=== PATIENT | female | born 1975 | race Caucasian/White ===

== ENCOUNTER → 2018-11-05 | Outpatient (CLI) | payer OTHER ==
--- NOTE | 2018-11-05 10:37 | XR ---
EXAMINATION TYPE: XR chest 2V DATE OF EXAM: 11/05/2018 COMPARISON: NONE HISTORY: Presurgical study. TECHNIQUE: Frontal and lateral views of the chest are obtained. FINDINGS: There is no focal air space opacity, pleural effusion, or pneumothorax seen. The cardiac silhouette size is within normal limits. The osseous structures are intact. IMPRESSION: No acute cardiopulmonary process.
== END | disposition home or self-care (01) ==
LOC: LABPAT 09:24
PROVIDERS: ATTEND Orthopaedic Surgery Orthopaedic Surgery of the Spine
DX: Z01.818 Encounter for other preprocedural examination (principal); M48.02 Spinal stenosis, cervical region; Z01.812 Encounter for preprocedural laboratory examination
CPT/HCPCS: 71046

== ENCOUNTER 2018-11-12 10:31 | Observation (INO) | payer OTHER ==
[~2018-11-12 10:31] MED LIST: BACITRACIN 50,000 UNIT, POLYMYXIN B 500,000 UNIT in SODIUM CHLORIDE 0.9% IRRIGATIO 1,00... IRRIGATION ONE; DEXAMETHASONE SOD PHOSPHATE 10 MG/ML 1 ML VIAL IV ONE; LIDOCAINE 1% 20 ML VIAL (10MG/ML) FOR IV START INTRADERMA PRN; MIDAZOLAM 2 MG/2 ML VIAL IV PRN; ceFAZolin IN SWFI 2 GM/20 ML SYRINGE IVP ONE; fentaNYL (PF) 50 MCG/ML 2 ML AMP IV PRN
[2018-11-12] MEDS ORDERED: ONDANSETRON 4 MG/2 ML VIAL IVP ONE (11:25)
[2018-11-12] MEDS: LACTATED RINGERS 1,000 ML IV SCH (11:25)
[2018-11-12 11:39] LABS: Glucose,Whole Blood 96 mg/dL (75-99)
[2018-11-12] MEDS ORDERED: SUCCINYLCHOLINE CHLORIDE 100 MG/5 ML SYR IV ONE (13:35)
[2018-11-12] MEDS ORDERED: LIDOCAINE 1% INJ 10MG/ML (20 ML MDV) ONE (13:35)
[2018-11-12] MEDS ORDERED: KETAMINE 10 MG/ML 20 ML VIAL ONE (13:35)
[2018-11-12] MEDS ORDERED: MIDAZOLAM 2 MG/2 ML VIAL ONE (13:35)
[2018-11-12] MEDS ORDERED: fentaNYL (PF) 50 MCG/ML 2 ML AMP ONE (13:35)
[2018-11-12] MEDS ORDERED: PROPOFOL 10 MG/ML 20 ML VIAL IV ONE (13:35)
[2018-11-12] MEDS ORDERED: DEXAMETHASONE SOD PHOS (MDV) 100 MG/10 ML VIAL ONE (13:35)
[2018-11-12] MEDS ORDERED: THROMBIN (BOVINE) 5,000 UNIT VIAL TOPICAL ONE (13:39)
[2018-11-12] MEDS ORDERED: LIDOCAINE 0.5%-EPI 1:200,000 50 ML VIAL SQ ONE (13:39)
[2018-11-12] MEDS ORDERED: GELATIN SPONGE,ABSORB (LARGE) 1 EACH SPONGE TOPICAL ONE (13:39)
[2018-11-12] MEDS ORDERED: LACTATED RINGERS 1,000 ML IV ONE (14:37)
[2018-11-12] MEDS ORDERED: HYDROmorphone 1 MG/ML 1 ML SYRINGE IVP PRN (15:17)
[2018-11-12] MEDS ORDERED: ONDANSETRON 4 MG/2 ML VIAL IVP PRN (15:17)
[2018-11-12] MEDS ORDERED: HYDROmorphone 0.5 MG/0.5 ML SYRINGE IVP PRN (15:17)
[2018-11-12] MEDS ORDERED: ACETAMINOPHEN TAB 325 MG TAB PO PRN (15:17)
[2018-11-12] MEDS ORDERED: BENZOCAINE/MENTHOL LOZENG 1 EACH LOZENGE MUCOUS MEM PRN (15:17)
[2018-11-12] MEDS ORDERED: GABAPENTIN 300 MG CAP PO PRN (15:19)
[2018-11-12] MEDS ORDERED: CITALOPRAM HYDROBROMIDE 20 MG TAB PO PRN (15:19)
--- NOTE | 2018-11-12 15:25 | P.OP ---
Date of Procedure: 11/12/18 Preoperative Diagnosis: Herniated nuclear pulposus C5 6, cervical stenosis C5 6, upper extremity radiculopathy, upper extremity weakness Postoperative Diagnosis: Same Anesthesia: GETA Pathology: none sent Condition: stable Disposition: PACU Description of Procedure: BRIEF OPERATIVE NOTE Preoperative Diagnosis:Herniated nuclear pulposus C5 6, cervical stenosis C5 6, upper extremity radiculopathy, upper extremity weakness Postoperative Diagnosis: Same Procedure: Anterior cervical decompression with discectomy and fusion C5 6 Placement of interbody graftC5 6 Application of anterior cervical plateC5 6 Surgeon: [facility] Appraiser: Gelacio AU who is present throughout the entire the case persistence during positioning, dissection, exposure, visualization, and all crucial elements of the case as well as closure. Anesthesia: General anesthesia Estimated blood loss: 50 mL Complications: None apparent Components implanted: K2M [place] anterior cervical plate with Vikos interbody allograft Disposition: To recovery room in good stable condition. OPERATIVE INDICATIONS The patient has had significant issues in their neck and upper extremities. She was having severe numbness tingling in her upper extremities and was found have a large disc herniation at C5 6 well with her neck and upper extremity symptoms. The patient has been through conservative treatment. She is not having any improvement despite aggressive conservative care. We discussed various treatment options including surgery, and the patient wishes to proceed with surgery We discussed the risk, patient's alternatives and benefits of surgery including but not limited to, risk of bleeding risk of infection, risk of need for further surgery, risk of decreased, loss of motion, muscle function, malunion nonunion, hardware failure, nerve damage, paralysis, heart attack, and . OPERATIVE SUMMARY After discussing all the risks, patient alternatives and benefits at length, the patient elected to proceed with surgical intervention, signed informed consent, and presented for their procedure. The patient was seen and examined in the preoperative holding area and the surgical site was marked. The patient was given antibiotics and brought to the operating room. The patient was positioned on the operating room table in a supine position being careful to pad any bony prominences and pressure points. The patient was sedated and intubated by anesthesia in standard fashion. Once the airway and C- spine were stabilized the patient's arms were padded and tucked at her side, with her shoulders gently taped. The head was placed in a donut pad with the neck in good neutral alignment and position. We were careful to maintain the patient's cervical spine and good neutral alignment and position throughout. The patient was prepped and draped in a normal standard fashion. An appropriate timeout and keystone protocol performed. We were able to proceed with the surgery. The local wound area was infiltrated with local anesthetic. An incision was made transversely approximately 2-1/2 cm over the appropriate levels at C5 6. Dissection was taken down subcutaneously to the level of the platysma which was split in line with its fibers. Dissection was taken with a carotid approach, with the trachea and esophagus medial and the carotid sheath laterally. We dissected down to the anterior surface of the vertebral bodies of C5 6. Intraoperative x-ray was taken which showed a marker at the appropriate level at C5 6. With the appropriate level positively confirmed, we were able to proceed with discectomy at the appropriate levels of C5 6. All of the operative levels were exposed appropriately. The patient had all their twitches back, and there was no evidence of recurrent laryngeal issue. The wound was copiously irrigated and suctioned dry as had been done periodically throughout the case. At the appropriate level/levels, I established an annulotomy with an 11 blade scalpel. There is significant large disc herniation causing severe stenosis and foraminal decompression. A discectomy was performed with a combination of pituitary rongeurs, curettes, a high-speed bur, and Kerrison rongeurs. The posterior longitudinal ligament was taken down as were any posterior osteophytes. This gave good central and bilateral foraminal decompression. There is no evidence of any dural tear or leak. The endplates were prepared with a high-speed bur. With the endplates in good parallel position, I was able to size for the appropriate size interbody graft. The wound was irrigated and suctioned dry the graft was prepared and malleted into position. It had good alignment and position with the anterior surface flush with the anterior surface of the vertebral bodies of C5 6. With the grafts intact, I was able to measure and contour and appropriate sized plate. The plate was positioned at the midline over the appropriate levels of C5 6. Screw holes were established with a hand drill and drill guide. Screws were placed in good alignment and position with excellent bony purchase. They were seated under the locking device. The construct was checked and found to be stable. Intraoperative x-ray was taken which showed good alignment and position of the implants at the appropriate levels of C5 6. There was no evidence of any dural tear or leak. Good hemostasis was maintained. The wound was copiously irrigated and suctioned dry as had been done periodically throughout the case. The platysma was closed with absorbable suture. The subcutaneous tissue was closed. The subcuticular tissue was closed with absorbable suture. The wound was cleaned and dried and dressed appropriately. A soft cervical collar was placed appropriately. The patient was woken up by anesthesia, extubated, transferred back gently to their hospital bed and brought to the recovery room in good stable condition. The patient will be admitted to the hospital for appropriate postoperative care, medical management and monitoring. We will continue to follow them closely about the postoperative course.
[2018-11-12 15:54] LABS: Glucose,Whole Blood 110 mg/dL (75-99)
--- NOTE | 2018-11-12 15:57 | XR ---
Cervical spine HISTORY: Needle placement Single lateral view of the cervical spine submitted. There is a needle present within the C5-6 disc space. Exam is limited. There is spondylosis present. Overlying leads are present. IMPRESSION: Orthopedic localization.
--- NOTE | 2018-11-12 16:03 | XR ---
Cervical spine HISTORY: Anterior cervical fusion and discectomy Single lateral cervical spine submitted. Endotracheal tube is in place. Lesion is status post anterior cervical fusion and discectomy at C5 th rough what is likely C6, more inferiorly is not well seen. There is anatomic alignment. Intervertebra l spacing block. IMPRESSION: Limited orthopedic follow-up
[2018-11-12] MEDS: SODIUM CHLORIDE 0.9% 1,000 ML IV SCH (17:06)
[2018-11-12 17:17] VITALS: BMI 42.9
[2018-11-12 17:28] LABS: Glucose,Whole Blood 133 mg/dL (75-99)
[2018-11-12] MEDS: metFORMIN 500 MG TAB PO SCH (20:05)
[2018-11-12 20:37] LABS: Glucose,Whole Blood 196 mg/dL (75-99)
[2018-11-12] MEDS: ceFAZolin IN SWFI 2 GM/20 ML SYRINGE IVP SCH (21:50)
[2018-11-12] MEDS: HYDROcodone/APAP 5-325MG 1 EACH TAB PO PRN (21:50)
[2018-11-13 02:09] VITALS: PULSE 95
[2018-11-13] MEDS: LACTATED RINGERS 1,000 ML IV SCH (05:12)
[2018-11-13] MEDS: ceFAZolin IN SWFI 2 GM/20 ML SYRINGE IVP SCH (05:12)
[2018-11-13] MEDS: SODIUM CHLORIDE 0.9% 1,000 ML IV SCH (05:13)
[2018-11-13] MEDS: HYDROcodone/APAP 5-325MG 1 EACH TAB PO PRN ×2 (05:19→09:23)
[2018-11-13] MEDS ORDERED: PANTOPRAZOLE 40 MG TABLET PO SCH (07:30)
[2018-11-13 07:33] LABS: Glucose,Whole Blood 183 mg/dL (75-99)
[2018-11-13] MEDS ORDERED: LISINOPRIL 2.5 MG TAB PO SCH (09:00)
[2018-11-13] MEDS ORDERED: SENNOSIDES-DOCUSATE SODIUM 1 EACH TAB PO SCH (09:00)
[2018-11-13] MEDS ORDERED: PHENTERMINE HCL PO SCH (09:00)
[2018-11-13 09:07] VITALS: BP 142/84; RESP 16; TEMP 98.7
--- NOTE | 2018-11-13 09:29 | P.DS ---
Providers Date of admission: 11/13/18 00:06 Attending physician: Garret Levine Primary care physician: [facility] Hospital Course: The patient presented on the day of admission as per their operative note. She had a disc herniation at C5 6 with severe stenosis and upper extremity radiculopathy and underwent anterior cervical discectomy and fusion as per her operative note. She feels that she is doing well. She feels her symptoms at her upper extremities improved already with her surgery. Physical Exam The incision site is clean dry and intact. There is no erythema no drainage. There is no purulence no evidence of infection. Her neck is soft and supple without any swelling. Abdomen soft and nontender. Chest has good excursion with deep inspiration and expiration. The patient has active and passive range of motion intact at the upper and lower extremities. There is no acute change in neurologic status. Hospital Course Postoperative day #1 status post anterior cervical decompression with discectomy and fusion at C5 6 for her large disc herniation with severe stenosis and upper extremity radiculopathy. The patient has been making good progress postoperatively. They have completed the prophylactic antibiotics without any signs or symptoms of infection. The patient has been able to advance their diet, and is tolerating diet adequately. The pain was initially controlled with IV medications and is now controlled appropriately with oral medications. The patient has been able to increase their mobilization. The patient has progressed appropriately. I think they are in good stable condition for discharge today. They will be sent home with appropriate prescriptions. I answered their questions to the best of my ability in a language that they can understand and they are agreeable with the plan. They will follow up as directed in approximately 2 weeks or sooner if she is having any problems. Patient Condition at Discharge: Good Plan - Discharge Summary Discharge Rx Participant: Yes New Discharge Prescriptions: New HYDROcodone/APAP 5-325MG [[place] 5] 1 - 2 each PO Q6HR PRN #24 tab PRN Reason: Pain No Action Phentermine HCl 37.5 mg PO DAILY Lisinopril [Zestril] 2.5 mg PO QAM metFORMIN HCL [Glucophage] 500 mg PO BID Omeprazole [PriLOSEC] 20 mg PO AC-BID Ibuprofen [Motrin] 800 mg PO DAILY PRN PRN Reason: Pain Gabapentin 600 mg PO DAILY PRN PRN Reason: Pain Citalopram Hydrobromide [Citalopram HBr] 20 mg PO DAILY PRN PRN Reason: depression Discharge Medication List Citalopram Hydrobromide [Citalopram HBr] 20 mg PO DAILY PRN 11/05/18 [History] Gabapentin 600 mg PO DAILY PRN 11/05/18 [History] Ibuprofen [Motrin] 800 mg PO DAILY PRN 11/05/18 [History] Lisinopril [Zestril] 2.5 mg PO QAM 11/05/18 [History] Omeprazole [PriLOSEC] 20 mg PO AC-BID 11/05/18 [History] Phentermine HCl 37.5 mg PO DAILY 11/05/18 [History] metFORMIN HCL [Glucophage] 500 mg PO BID 11/05/18 [History] HYDROcodone/APAP 5-325MG [[place] 5] 1 - 2 each PO Q6HR PRN #24 tab 11/12/18 [Rx] Follow up Appointment(s)/Referral(s): Raiza Souza MD [Primary Care Provider] - 11/18/18 11:15 am Garret Levine DO [Doctor of Osteopathic Medicine] - 11/28/18 2:00 pm Patient Instructions/Handouts: *Surgery [facility] - ([facility]) Cervical Surgery Discharge Instructions Activity/Diet/Wound Care/Special Instructions: Keep site clean. May shower with waterproof Tegaderm intact. Do not soak in a tub. After 72 hours postoperatively, patient May remove dressing and then may shower with area uncovered. Leave Steri-Strips intact and allow them to fray off on their own. May ambulate as tolerated. Avoid heavy or rigorous activity. No repetitive bending twisting or lifting. No overhead work.
[2018-11-13] MEDS: metFORMIN 500 MG TAB PO SCH (10:08)
== END 2018-11-13 10:46 | disposition home or self-care (01) ==
LOC: OR 10:31 → 4SSUR 15:16 → OR 11-13 00:05 → 4SSUR 11-13 00:06
PROVIDERS: ADMIT Orthopaedic Surgery Orthopaedic Surgery of the Spine; ATTEND Orthopaedic Surgery Orthopaedic Surgery of the Spine
DX: M50.122 Cervical disc disorder at C5-C6 level with radiculopathy (principal); M48.02 Spinal stenosis, cervical region; M47.812 Spondylosis without myelopathy or radiculopathy, cervical region; E11.9 Type 2 diabetes mellitus without complications; E78.5 Hyperlipidemia, unspecified; F32.9 Major depressive disorder, single episode, unspecified; G56.03 Carpal tunnel syndrome, bilateral upper limbs; Z97.3 Presence of spectacles and contact lenses; Z87.891 Personal history of nicotine dependence; Z79.84 Long term (current) use of oral hypoglycemic drugs; Z79.899 Other long term (current) drug therapy; Z83.3 Family history of diabetes mellitus; Z82.49 Family history of ischemic heart disease and other diseases of the circulatory system
CPT/HCPCS: 22551; 20931; 81025; 86900; 86901; 86850; 72020; 36415; G0378; C1713; C1762; J2250; J2405; J2001; J3010; J1170; J1100; J0330; J2704; J0690 ×2

== ENCOUNTER → 2021-11-17 | Outpatient (CLI) | payer BC, OTHER ==
[2021-11-17 12:12] LABS: Appearance,Urine Cloudy (Clear); Bilirubin,Urine 1+ (Negative); Blood,Urine Negative (Negative); Color,Urine Yellow; Glucose,Urine (UA) Negative (Negative); Ketones,Urine Negative (Negative); Leukocyte Esterase,Urine Negative (Negative); Mucus,Urine Rare /hpf; Nitrite,Urine Negative (Negative); Protein,Urine 1+ (Negative); RBC,Urine 2 /hpf (0-5); Specific Gravity,Urine 1.029 (1.001-1.035); Squamous Epithelial Cell,Urine 11 /hpf (0-4); WBC,Urine 3 /hpf (0-5)
[2021-11-17 18:37] LABS: Basophils # (A) 0.12 X 10*3/uL (0.00-0.10); Basophils % (A) 1.3 %; Eosinophils % (A) 4.3 %; HCT 41.9 % (37.2-46.3); Immature Grans, Automated 0.5 %; Lymphocytes # (A) 1.74 X 10*3/uL (0.90-5.00); Lymphocytes % (A) 18.8 %; MCH 27.4 pg (27.0-32.0); MCV 88.2 fL (80.0-97.0); Mean Platelet Volume 11.2 fL (9.5-12.2); Monocytes # (A) 0.33 X 10*3/uL (0.20-1.00); Monocytes % (A) 3.6 %; NRBC Per 100 WBC 0 /100 WBCS (0.0-0.0); Neutrophils # (A) 6.64 X 10*3/uL (1.80-7.70); Neutrophils % (A) 71.5 %; Platelet Count 371 X 10*3/uL (140-440); RBC 4.75 X 10*6/uL (4.10-5.20); RDW 14.2 % (11.5-14.5); WBC 9.28 X 10*3/uL (4.50-10.00)
[2021-11-17 19:26] LABS: ALT 39 U/L (8-44); AST 30 U/L (13-35); African American GFR (CKD) 119.6 (60.0-200.0); Albumin/Globulin Ratio 1.05 (1.60-3.17); Alkaline Phosphatase 131 U/L (41-126); BUN/Creat Ratio 14.14 Ratio (12.00-20.00); Blood Urea Nitrogen 9.9 mg/dL (9.0-27.0); Calcium 9.5 mg/dL (8.7-10.3); Carbon Dioxide 25.7 mmol/L (20.0-27.5); Chloride 99 mmol/L (96-109); Globulin 3.8 g/dL (1.6-3.3); Glucose 136 mg/dL (70-110); Non-African American GFR(CKD) 103.2 (60.0-200.0); Potassium 4.5 mmol/L (3.5-5.5); Sodium 137 mmol/L (135-145); Total Protein 7.8 g/dL (6.2-8.2)
== END | disposition home or self-care (01) ==
LOC: LABWHC1 09:27
PROVIDERS: ATTEND Family Medicine
DX: Z01.818 Encounter for other preprocedural examination (principal)
CPT/HCPCS: 36415; 80053; 81001; 83036; 84443; 85025; 93005

== ENCOUNTER → 2023-08-09 | Outpatient (CLI) | payer BC, OTHER ==
[2023-08-10 02:56] LABS: ALT 65 U/L (8-44); AST 46 U/L (13-35); Albumin/Globulin Ratio 1.25 Ratio (1.60-3.17); Alkaline Phosphatase 147 U/L (41-126); BUN/Creat Ratio 19.83 Ratio (12.00-20.00); Blood Urea Nitrogen 11.9 mg/dL (9.0-27.0); Calcium 9.4 mg/dL (8.7-10.3); Carbon Dioxide 28.5 mmol/L (21.6-31.8); Chloride 99 mmol/L (96-109); Globulin 3.2 g/dL (1.6-3.3); Glucose 128 mg/dL (70-110); Potassium 4.1 mmol/L (3.5-5.5); Sodium 139 mmol/L (135-145); Total Bilirubin 0.5 mg/dL (0.3-1.2); Total Protein 7.2 g/dL (6.2-8.2)
[2023-08-10 04:03] LABS: Basophils # (A) 0.05 X 10*3/uL (0.00-0.10); Basophils % (A) 0.5 %; Eosinophils # (A) 2.86 X 10*3/uL (0.04-0.35); Eosinophils % (A) 30.9 %; HCT 41.2 % (37.2-46.3); HGB 13.1 g/dL (12.0-15.0); Lymphocytes # (A) 1.62 X 10*3/uL (0.90-5.00); Lymphocytes % (A) 17.5 %; MCH 27.2 pg (27.0-32.0); MCHC 31.8 g/dL (32.0-37.0); MCV 85.7 FL (80.0-97.0); Mean Platelet Volume 11.4 FL (9.5-12.2); Monocytes # (A) 0.61 X 10*3/uL (0.20-1.00); Monocytes % (A) 6.6 %; NRBC Per 100 WBC 0.03 X 10*3/uL (0.00-0.01); Neutrophils # (A) 4.05 X 10*3/uL (1.80-7.70); Neutrophils % (A) 43.7 %; Platelet Count 264 X 10*3/uL (140-440); RBC 4.81 X 10*6/uL (4.10-5.20); RBC Morphology Normal (Normal); RDW 13.8 % (11.5-14.5); WBC 9.26 X 10*3/uL (4.50-10.00)
[2023-08-10 07:09] LABS: Cryptosporidium Antigen Negative (Negative)
[2023-08-10 10:46] LABS: Hepatitis A Ab, Total Nonreactive; Hepatitis A Antibody IgM Nonreactive
== END | disposition home or self-care (01) ==
LOC: LABWHC1 14:33
PROVIDERS: ATTEND Physician Assistant
DX: R19.7 Diarrhea, unspecified (principal)
CPT/HCPCS: 36415; 80053; 85025; 86708; 86709; 87045; 87046; 87324; 87328; 87329